=== PATIENT | male | born 1960 | race Caucasian/White ===

== ENCOUNTER 2019-05-08 16:31 | Inpatient (IN) | payer OTHER ==
[~2019-05-08] VITALS: Ht 182.9 cm; Wt 109.0 kg
[2019-05-08 17:03] LABS: BASOPHILS ABSOLUTE AUTO 0.08 K/mm3 (0.00-0.23); BASOPHILS PERCENT AUTO 0 % (0-2); EOSINOPHILS PERCENT AUTO 0 % (0-6); IMMATURE GRAN PERCENT AUTO 1 % (0-1); LYMPHOCYTES ABSOLUTE AUTO 0.95 K/mm3 (0.84-5.20); LYMPHOCYTES PERCENT AUTO 5 % (21-46); MONOCYTES ABSOLUTE AUTO 1.53 K/mm3 (0.16-1.47); MONOCYTES PERCENT AUTO 7 % (4-13); Mean Corpuscular HGB 29.2 pg (26.0-34.0); Mean Corpuscular HGB Conc 33.5 g/dL (31.5-36.5); Mean Corpuscular Volume 87 fL (80-100); Mean Platelet Volume 11.3 fL (9.1-12.4); NEUTROPHILS ABSOLUTE AUTO 18.56 K/mm3 (1.96-9.15); NEUTROPHILS PERCENT AUTO 87 % (41-73); Platelet Count 605 K/mm3 (150-400); RDW Coefficient Variation 12.4 % (11.7-14.2); RDW Standard Deviation 39.8 fL (35.1-46.3); White Blood Cell Count 21.32 K/mm3 (4.00-11.30)
[2019-05-08 17:04] LABS: Hematocrit 56.8 % (37.0-53.0)
[2019-05-08 17:14] LABS: Base Excess Venous 4.8 mmol/L; Bicarbonate Venous 27.3 mmol/L (24.0-30.0); PCO2 Venous 46.4 mmHg (38-42); PO2 Venous 60.3 mmHg (38-42); pH Blood Venous 7.41 (7.34-7.37)
[2019-05-08 17:27] LABS: Albumin/Globulin Ratio 0.6 (0.8-1.8); Bilirubin, Total 0.7 mg/dL (0.1-1.0); Bun/Creatinine Ratio 71.2 (12.0-20.0); Calcium, Blood 9.6 mg/dL (8.5-10.1); Creatinine, Blood 1.56 mg/dL (0.60-1.20); Globulin, Blood 5.2 g/dL (2.2-4.0); Potassium, Blood 3.2 mmol/L (3.5-5.5); Total Protein, Blood 8.2 g/dL (6.4-8.2)
[2019-05-08 17:48] LABS: Source, Urine Voided
[2019-05-08 17:51] LABS: Bilirubin, Urine Neg (Neg); Blood, Urine 2+ (Neg); Glucose Qualitative, Urine 4+ (Neg); Ketones, Urine Neg (Neg); Leukocyte Esterase, Urine Neg (Neg); Nitrite, Urine Neg (Neg); Protein, Urine Neg (Neg); Urobilinogen, Urine NORM (Normal)
[2019-05-08 17:53] LABS: Appearance, Urine Clear (Clear); Color, Urine Yellow (P-Yellow)
[2019-05-08 17:59] LABS: Amorphous Light (0-Heavy); Bacteria Few /hpf; Mucus Light (0-Heavy); Squamous Epithelial Cells Rare /hpf (Few); White Blood Cells, Urine Not Seen /hpf (0-5)
[2019-05-08 18:14] LABS: Influenza A Negative (NEGATIVE); Influenza B Negative (NEGATIVE)
[2019-05-08 19:15] LABS: Glucose, Blood 783 mg/dL (70-99)
[2019-05-08] MEDS ORDERED: DOC250 PO (19:38)
[2019-05-08] MEDS ORDERED: ACET325 PO (19:41)
[2019-05-08] MEDS ORDERED: GABA300 PO (19:42)
[2019-05-08] MEDS ORDERED: TAMS.4ER PO (19:42)
[2019-05-08] MEDS ORDERED: Viagra100 MG PO (19:42)
[2019-05-08] MEDS ORDERED: METO100ER PO (19:42)
[2019-05-08] MEDS ORDERED: OMEP20ER PO (19:42)
[2019-05-08] MEDS ORDERED: DULO30 PO (19:43)
[2019-05-08] MEDS ORDERED: NORVASC10 MG PO (19:43)
[2019-05-08] MEDS ORDERED: ATORVASTATIN CA40 M1 PO (19:43)
[2019-05-08] MEDS ORDERED: Aspirin EC81 MG PO (19:43)
[2019-05-08] MEDS ORDERED: HYDROCHLOROTH12.5 MG PO (19:44)
[2019-05-08] MEDS ORDERED: LISI20 PO (19:44)
[2019-05-08] MEDS ORDERED: Glucophage1000 MG PO (19:44)
[2019-05-08] MEDS ORDERED: JARDIANCE25 MG PO (19:45)
[2019-05-08 21:13] LABS: Bun/Creatinine Ratio 67.8 (12.0-20.0); Calcium, Blood 8.1 mg/dL (8.5-10.1); Creatinine, Blood 1.49 mg/dL (0.60-1.20); Potassium, Blood 3.5 mmol/L (3.5-5.5)
--- NOTE | 2019-05-08 23:00 | NUR ---
PT TO ICU 9 VIA KENYA WITH ED RN. PT ALERT AND ORIENTED TO SELF, PLACE, EVENT, AND FOLLOWING DIRECTIONS BUT ANSWERING SOME QUESTIONS INCORRECTLY/INAPPROPRIATELY, PT STS HE WAS BROUGHT IN TO THE HOSPITAL BY "ONE OF YOU"- REFERING TO THE STAFF IN THE ROOM, SOME REPETATIVE QUESTIONS ASKING STAFF MEMBERS "WHO ARE YOU?", PT STS HE HAS BEEN SICK FOR AWHILE AND TELLS THIS RN HE HAS NOT TAKEN HIS HOME MEDS FOR THE PAST 3-4 DAYS BUT REPORTS TO THE PROVIDER IT HAS BEEN NEARLY A MONTH SINCE HE HAS TAKEN ANY MEDICATIONS. O2 SATURATIONS MAINTAINED>90% ON RA, MONITOR SHOWS SINUS RHYTHM WITH HR 90'S-110, PT HYPOTENSIVE. REPORT FOR ED STS PT HAS RECEIVED 4L NS BOLUS, ORDER FROM NEO SPAULDING DENTAL TECHNOLOGIST FOR 2 ADDITIONAL NS BOLUS. PT STS HAS NOT HAD A BM FOR AT LEAST 7 DAYS. MOBLEY PRESENT AND DRAINING YELLOW URINE. L SIDE WEAKNESS PRESENT, HX OF CVA IN 2016 PER PT. FECES NOTED TO BOTTOM OF PTS FOOT, PT STS HE HAS MANY ANMIALS AT HOME AND HAS NOT BEEN ABLE TO CARE FOR THEM SINCE HE BECAME ILL, FOOT CLEANED UPON ARRIVAL TO ROOM.
--- NOTE | 2019-05-08 23:18 | NUR ---
SPOKE WITH NEO SPAULDING, UPDATED ON PTS STATUS, 6TH LITER BOLUS INFUSING, PT REMAINS HYPOTENSIVE. SEE NEW ORDERS.
[2019-05-08 23:35] LABS: Glucose, Blood 520 mg/dL (70-99)
[2019-05-08 23:42] LABS: Adenovirus Not Detected (NOT DETECT); Bordetella pertussis Not Detected (NOT DETECT); Chlamydophila pneumoniae Not Detected (NOT DETECT); Coronavirus 229E Not Detected (NOT DETECT); Coronavirus HKU1 Not Detected (NOT DETECT); Coronavirus NL63 Not Detected (NOT DETECT); Coronavirus OC43 Not Detected (NOT DETECT); Human Metapneumovirus Not Detected (NOT DETECT); Human Rhinovirus/Enterovirus Not Detected (NOT DETECT); Influenza A Not Detected (NOT DETECT); Influenza A/2009-H1 Not Detected (NOT DETECT); Influenza A/H1 Not Detected (NOT DETECT); Influenza A/H3 Not Detected (NOT DETECT); Influenza B Not Detected (NOT DETECT); Mycoplasma pneumoniae Not Detected (NOT DETECT); Parainfluenza Virus 1 Not Detected (NOT DETECT); Parainfluenza Virus 2 Not Detected (NOT DETECT); Parainfluenza Virus 3 Not Detected (NOT DETECT); Parainfluenza Virus 4 Not Detected (NOT DETECT); Respiratory Syncytial Virus Detected (NOT DETECT)
--- NOTE | 2019-05-09 01:30 | NUR ---
DR VERA TO ROOM, BEDSIDE ULTRASOUND, SEE NEW ORDERS.
[2019-05-09 03:24] LABS: Hematocrit 40.9 % (37.0-53.0); Hemoglobin 13.7 g/dL (13.5-17.5); Mean Corpuscular HGB 29.7 pg (26.0-34.0); Mean Corpuscular HGB Conc 33.5 g/dL (31.5-36.5); Mean Corpuscular Volume 89 fL (80-100); Mean Platelet Volume 10.7 fL (9.1-12.4); Platelet Count 397 K/mm3 (150-400); RDW Coefficient Variation 12.5 % (11.7-14.2); RDW Standard Deviation 40.5 fL (35.1-46.3); Red Blood Cell Count 4.62 M/mm3 (4.30-5.90); White Blood Cell Count 32.37 K/mm3 (4.00-11.30)
[2019-05-09 03:38] LABS: Bun/Creatinine Ratio 56.9 (12.0-20.0); Calcium, Blood 7.1 mg/dL (8.5-10.1); Creatinine, Blood 1.44 mg/dL (0.60-1.20); Potassium, Blood 3.7 mmol/L (3.5-5.5)
--- NOTE | 2019-05-09 07:19 | NUR ---
SHIFT SUMMARY PT RESTED THROUGH SHIFT, REMAINS AROUSABLE TO VERBAL STIMULI AND ORIENTED TO SELF, EVENT, PLACE AND FOLLOWING DIRECTIONS. PT DOES SEEM CONFUSED AT TIMES, POSSIBLE AUDITORY HALLUCINATIONS- STS HE WAS HEARING DOGS PARKING, NOT AUDIBLE BY THIS RN. PT WITH REPETATIVE QUESTIONS AND APPEARS FRUSTRATED WITH STAFF AT TIMES. MONITOR SHOWS SINUS RHYTHM WITH HR 90-110, BP MORE STABLE WITH SBP 90'S-110. NO BM THIS SHIFT, PT TOLERATING PO INTAKE OF WATER AND ICE CHIPS. MOBLEY IN PLACE AND DRAINING DARK YELLOW URINE. REPORT TO JAMIE LAGOS.
--- NOTE | 2019-05-09 10:11 | NUR ---
BEDSIDE REPORT TAKEN AT 0700. PT SLEEPING AROUSES TO VOICE. GRAM POS COCCI IN CHAINS REPORTED TO DR VERA AT 0755; WELL COMPLETE UPDATE. BP HYPOTENSIVE W MAP>65. NS INFUSING AT 100CC/HR. AZITHROMYCIN TO BE GIVEN. PT WOKE UP AT 0830 COVERED WITH STOOL. STOOL ON HANDS, BODY, AND LINEN. PT SOMEWHAT DISORIENTED AT FIRST AND THEN CLEARED VERY WELL T/O CLEANING. PT ORIENTED TO SELF, YEAR, AND HOSPITAL. PT VERY APOLOGETIC; PT COMFORTED. PT IN 8/10 PAIN WITH BED BATH. GENERALIZED PAIN/ACHE T/O. SKIN TAUNT, JOINTS RED. SCROTUM VERY EXORIATED W BLEEDING; BARRIER CREAM APPLIED. EXCORIATED AT COCCYX CREASE; BARRIER CREAM APLLIED. VAROIUS OLD SCRATCHES AND SORES COVERING PT. PT'S TEETH SEVERLY DECAYED AND LOOSE. ORAL CARE COMPLETED; NO THRUSH NOTED. FENT 25MCG GIVEN W GOOD EFFECT. LABS TO BE REPEATED AT 1100.
[2019-05-09 11:37] LABS: Anion Gap 5 mmol/L (6-16); Blood Urea Nitrogen 62 mg/dL (8-24); Bun/Creatinine Ratio 48.8 (12.0-20.0); CO2, Blood 24 mmol/L (21-32); Calcium, Blood 7.3 mg/dL (8.5-10.1); Chloride, Blood 118 mmol/L (98-108); Creatinine, Blood 1.27 mg/dL (0.60-1.20); Glomerular Filtration Rate >60 (60-); Glucose, Blood 261 mg/dL (70-99); Magnesium, Blood 2.6 mg/dL (1.6-2.4); Potassium, Blood 3.8 mmol/L (3.5-5.5); Sodium, Blood 147 mmol/L (136-145)
--- NOTE | 2019-05-09 12:32 | NUR ---
PT LETHARGIC, AWAKENS TO VOICE AND IS SOEMWHAT CONFUSED; ABLE TO RE-ORIENT PT. PT MOANS WHEN MOVED. PT INCONTINENT OF STOOL X2, PASTY. TEMP 99.0, BUT PT FEELS WARMER THAN THIS, SKIN IS HOT AND FLUSHED. WILL MONITOR CLOSELY. U/O DARK DANIELA. BP STABLE. O2 PLACED AT 2L SATS DROP OCC TO 88% WHILE SLEEPING. 1100 AM LABS STABLE.
--- NOTE | 2019-05-09 18:47 | NUR ---
PT LETHARGIC AND SLEPT THE ENTIRE SHIFT ONLY AWAKENING FOR TURNS. TURNS VERY PAINFUL FOR PT, CRIES OUT (CHILD LIKE WHINES AND COMPLAINTS); PT COMFORTED. PT WARM AND FLUSH T/O SHIFT; TMAX 99.1. PT INCONTINENT OF STOOL X4; STOOL PASTY/LOOSE/DK BROWN. EXCORIATED SCROTUM AND COCCYX CREASE MUCH IMPROVED AFTER BARRIER CREAM APPLIED. BS STABLE. NS AT 100CC/HR. BP STABLILIZED AND IS SLOWLY TRENDING UPWARD, HEART RATE REMAINS SR TO SINUS TACH 90-110. URINE DARK DANIELA (1500CC TOTAL). PT TURNED Q2HRS. ORAL CARE Q 2 WELL; SEVERE TOOTH DECAY,MISSING TEETH, AND LOOSE TEETH T/O. FENT ONLY GIVEN ONCE D/T SOMULENCE. POWERGLIDE PLACED TO ROSIO. UNABLE TO TAKE ACCURATE BP ON LEFT ARM D/T CVA. DR MUNGUIA UPDATED ON PT'S CONDITION, DR VERA UPDATED T/O THE SHIFT SHE WAS IN THE UNIT. 02 PLACED AT 2L PT WOULD OCC DESATURATE WHILE SLEEPING TO 88%. SATS 96%+ ON 2L. COUGH NON-PRODUCTIVE HARSH AND LOOSE SOUNDING.
--- NOTE | 2019-05-09 19:30 | NUR ---
ASSUMED CARE NOTE; ASSUMED CARE OF PT AT 1900, RECEVIED REPORT FROM DEMOND AYALA. PT IS LETHARGIC, RESPONDS TO VERBAL AND PAINFUL STIMULI. PT IS ON 2L OF O2 VIA NC WITH SPO2 REMAINING ABOVE 90%. ORAL MUCOSA IS DRY, WILL PROVIDE ORAL CARE Q2H. PT IN AFIB WITH HR @ 105. PT INCONTINENT OF BOWELS, REDDEND SCROTUM NOTED. MOBLEY PATENT AND DRAINING YELLOW DANIELA URINE. WILL CONTINUE TO MONITOR PT T/O SHIFT.
--- NOTE | 2019-05-09 23:40 | NUR ---
UPDATE: RECTAL TUBE PLACED, TO PREVENT FURTHER SKIN BREAKDOWN. PT TOLERATED INSERTION WELL.
--- NOTE | 2019-05-10 00:58 | NUR ---
SPOKE TO REGARDING ELEVATING BP, ORDERS GIVEN TO MONITOR AND CALL IF BP CONTINUES TO RISE.
--- NOTE | 2019-05-10 04:03 | NUR ---
UPDATE: CALLED HOSPITALIST REGARDING ELEVATED BP. ORDERS GIVEN FOR PRN MEDS, SEE EMAR. WILL CONTINUE TO MONITOR PT.
[2019-05-10 04:46] LABS: BASOPHILS ABSOLUTE AUTO 0.07 K/mm3 (0.00-0.23); BASOPHILS PERCENT AUTO 0 % (0-2); EOSINOPHILS ABSOLUTE AUTO 0.01 K/mm3 (0.00-0.68); EOSINOPHILS PERCENT AUTO 0 % (0-6); Hematocrit 40.3 % (37.0-53.0); Hemoglobin 13.5 g/dL (13.5-17.5); IMMATURE GRAN ABSOLUTE AUTO 0.37 K/mm3 (0.00-0.10); IMMATURE GRAN PERCENT AUTO 1 % (0-1); LYMPHOCYTES ABSOLUTE AUTO 2.34 K/mm3 (0.84-5.20); LYMPHOCYTES PERCENT AUTO 8 % (21-46); MONOCYTES ABSOLUTE AUTO 1.23 K/mm3 (0.16-1.47); MONOCYTES PERCENT AUTO 4 % (4-13); Mean Corpuscular HGB 29.9 pg (26.0-34.0); Mean Corpuscular HGB Conc 33.5 g/dL (31.5-36.5); Mean Corpuscular Volume 89 fL (80-100); Mean Platelet Volume 10.7 fL (9.1-12.4); NEUTROPHILS ABSOLUTE AUTO 24.06 K/mm3 (1.96-9.15); NEUTROPHILS PERCENT AUTO 86 % (41-73); Platelet Count 360 K/mm3 (150-400); RDW Coefficient Variation 13.1 % (11.7-14.2); RDW Standard Deviation 43.1 fL (35.1-46.3); Red Blood Cell Count 4.52 M/mm3 (4.30-5.90); White Blood Cell Count 28.08 K/mm3 (4.00-11.30)
[2019-05-10 05:06] LABS: Magnesium, Blood 2.7 mg/dL (1.6-2.4)
[2019-05-10 05:09] LABS: Alanine Aminotransfer (ALT/SGP 25 U/L (12-78); Albumin, Blood 1.7 g/dL (3.4-5.0); Albumin/Globulin Ratio 0.5 (0.8-1.8); Alk Phos 56 U/L (50-136); Anion Gap 8 mmol/L (6-16); Aspartate Aminotrans (AST/SGOT 26 U/L (12-37); Bilirubin, Total 0.4 mg/dL (0.1-1.0); Blood Urea Nitrogen 42 mg/dL (8-24); Bun/Creatinine Ratio 34.7 (12.0-20.0); CO2, Blood 22 mmol/L (21-32); Calcium, Blood 7.9 mg/dL (8.5-10.1); Chloride, Blood 127 mmol/L (98-108); Creatinine, Blood 1.21 mg/dL (0.60-1.20); Globulin, Blood 3.6 g/dL (2.2-4.0); Glomerular Filtration Rate >60 (60-); Glucose, Blood 178 mg/dL (70-99); Phosphorus, Blood 1.5 mg/dL (2.5-4.9); Potassium, Blood 3.8 mmol/L (3.5-5.5); Sodium, Blood 157 mmol/L (136-145); Total Protein, Blood 5.3 g/dL (6.4-8.2)
--- NOTE | 2019-05-10 06:09 | NUR ---
SHIFT SUMMARY: PT REMAINS LETHARGIC, RESPONDS TO PAIN AND VERBAL STIMULI. WHEN REPOSITIONED IN BED, PT MOANS AND STATES" I DO NOT WANT TO ". PT IS ALERT TO SELF AND TIME. HOWEVER IS UNABLE TO RECALL RECENT EVENTS. PT'S STORIES ARE INCONSISTANT, AND IS A POOR HISTORIAN. REMAINS ON 2L OF O2 VIA NC, WITH SPO2 @ 95%. PT HAS BEEN ON SINUS TACH WITH HR IN THE 110'S. PT HAS BEEN HYPERTENSIVE T/O SHIFT, 10MG OF HYDRALAZINE IV WAS GIVEN, SBP LOWERD FROM 190 TO 130. RECTAL TUBE IN PLACE DRAINING BROWN LOOSE STOOL. MOBLEY DRAINING DANIELA COLOR URINE. TKO TO POWERGLIDE. BED AT LOWEST LEVEL. WILL CONTINUE TO MONITOR PT UNTIL REPORT IS GIVEN TO ONCOMING SHIFT.
--- NOTE | 2019-05-10 08:00 | NUR ---
PROVIDER COMMUNICATION DR. MUNGUIA TO BEDSIDE FOR ASSESSMENT. UPDATED ON EVENTS FROM NIGHT. DISCUSSED ELEVATED SODIUM LEVEL. NO NEW ORDERS AT THIS TIME.
--- NOTE | 2019-05-10 11:00 | NUR ---
CARE ASSUMED REPORT RECEIVED, CARE ASSUMED FROM DEMOND GREEN AT 0700. PT ASLEEP, AROUSES EASILY FOR ASSESSMENT. ORIENTED TO SELF, ABLE TO EXPRESS NEEDS. PT CONTINUES TO BE CONFUSED REGARDING LOCATION AND EVENT. PT REQUESTING WATER, ORAL CARE AND SWABS PROVIDED. ATTEMPTS MADE TO EDUCATE PT REGARDING PLAN OF CARE CAUSE FRUSTRATION FROM PATIENT. PT'S ROOM MATE AT BEDSIDE AND VERBALIZES UNDERSTANDING AND AGREEMENT WITH PLAN OF CARE. VITALS STABLE. SEE FLOWSHEET, ASSESSMENTS.
--- NOTE | 2019-05-10 11:51 | NUR ---
THORACENTESIS THORACENTESIS COMPLETE. APPROX 1 L FLUID TAKEN OFF. NOTIFIED BY CLEMENCIA IN IMAGING THAT PT HAS SMALL PNEUMOTHORAX POST PROCEDURE. UPDATE GIVEN TO DR. VERA. NO NEW ORDERS AT THIS TIME. VITALS STABLE. WILL CONTINUE TO CLOSELY MONITOR.
--- NOTE | 2019-05-10 12:12 | NUR ---
PROVIDER COMMUNICATION DR. VERA TO BEDSIDE FOR ASSESSMENT. PLAN TO COMPLETE BEDSIDE SWALLOW EVALUATION AND THEN LET PT DRINK WATER AND RECHECK SODIUM LEVEL THIS AFTERNOON. SEE DR. VERA'S PROGRESS NOTE AND ORDERS.
--- NOTE | 2019-05-10 19:06 | NUR ---
SUMMARY PT DID WELL ON BEDSIDE SWALLOW EVAL, AND SINCE THEN HAS BEEN DRINKING WATER AND TOLERATING WELL. REPEAT SODIUM THIS AFTERNOON CONTINUES TO BE ELEVATED. CONTNIUE WITH CURRENT PLAN OF ENCOURAGING FLUIDS. VITALS STABLE. PT CHANGED TO PCU STATUS THIS AFTERNOON BY DR. VERA. PT HAS CONTINUED TO HAVE LARGE AMOUNT OF LIQUID STOOL, RECTAL TUBE IN PLACE. GOOD OUTPUT FROM MOBLEY. PT'S ROOM MATE HAS BEEN IN AND OUT THROUGHOUT THE DAY, ENCOURAGING TO PATIENT AND SUPPORTIVE OF PLAN OF CARE. PT DOES REPORT HAVING SOME AUDITORY HALLUCINATIONS, SUCH HEARING DOGS BARK OR CHILDREN TALKING. HE ALSO APPEARS TO HAVE FLIGHT OF IDEAS. PT'S ROOM MATE REPORTS THIS HAS BEEN GOING ON FOR AWHILE NOW AND SHE [facility] TO HIM AFTER HE DISCHARGES FROM HERE. PT PROGRESSIVELY MORE INVOLVED WITH TURNS AND ADL'S DAY HAS GONE BY. GOOD APPETITE TONIGHT FOR DINNER.
--- NOTE | 2019-05-10 19:34 | NUR ---
REPORT TO DEMOND SCHUMACHER TO ASSUME CARE
[2019-05-10 22:33] LABS: Phosphorus, Blood 1.5 mg/dL (2.5-4.9); Potassium, Blood 3.4 mmol/L (3.5-5.5)
--- NOTE | 2019-05-10 22:53 | NUR ---
ASSUMED CARE OF PT AT 1900, BEDSIDE REPORT GIVEN WITH PT'S PERMISSION. PT DID NOT PARTICIPATE. PT HAD NO LINES ATTACHED, BUT HAD MOBLEY AND RECTAL TUBE. BOTH PATENT AND DRAINING. PT REFUSED REPOSITIONING, BUT MOVED SELF AND PULLED PILLOW TO SIDE OF HEAD. PT AT 45 DEGREES PER REQUEST FOR COMFORT. REPOSITIONED PT'S OXYGEN. CLARIFIED WITH HOSPITALIST JASSON PT'S CURRENT POTASSIUM LEVEL AND RECEIVED ORDER TO D/C POTASSIUM COVERAGE.
[2019-05-11 05:47] LABS: Magnesium, Blood 2.3 mg/dL (1.6-2.4)
[2019-05-11 05:48] LABS: Alanine Aminotransfer (ALT/SGP 25 U/L (12-78); Albumin, Blood 1.5 g/dL (3.4-5.0); Albumin/Globulin Ratio 0.5 (0.8-1.8); Alk Phos 58 U/L (50-136); Anion Gap 8 mmol/L (6-16); Aspartate Aminotrans (AST/SGOT 27 U/L (12-37); Bilirubin, Total 0.3 mg/dL (0.1-1.0); Blood Urea Nitrogen 35 mg/dL (8-24); Bun/Creatinine Ratio 29.2 (12.0-20.0); CO2, Blood 22 mmol/L (21-32); Calcium, Blood 7.8 mg/dL (8.5-10.1); Chloride, Blood 124 mmol/L (98-108); Globulin, Blood 3.3 g/dL (2.2-4.0); Glomerular Filtration Rate >60 (60-); Glucose, Blood 175 mg/dL (70-99); Phosphorus, Blood 2.1 mg/dL (2.5-4.9); Potassium, Blood 3.4 mmol/L (3.5-5.5); Sodium, Blood 154 mmol/L (136-145); Total Protein, Blood 4.8 g/dL (6.4-8.2)
--- NOTE | 2019-05-11 06:39 | NUR ---
PT SLEPT MOST OF THE NIGHT. PT DRINKING WATER AND ASKING FOR MORE. REFILLS GIVEN. PT MIDLINE NO LONGER GIVING BLOOD SAMPLES, LAB DRAWS ATTEMPTED, NOW ATTEMPTING CAPILLARY DRAW. PT HAD LARGE LEAK FROM RECTAL TUBE, PARTIAL BED BATH AND FULL LINEN CHANGE DONE. PT MOVING SELF IN BED WELL, WITH ASSISTANCE. PT TOLERATING ROOM AIR AT 96% O2 SAT.
[2019-05-11 06:55] LABS: BASOPHILS ABSOLUTE AUTO 0.06 K/mm3 (0.00-0.23); BASOPHILS PERCENT AUTO 0 % (0-2); EOSINOPHILS ABSOLUTE AUTO 0.05 K/mm3 (0.00-0.68); EOSINOPHILS PERCENT AUTO 0 % (0-6); Hemoglobin 12.6 g/dL (13.5-17.5); IMMATURE GRAN ABSOLUTE AUTO 0.47 K/mm3 (0.00-0.10); IMMATURE GRAN PERCENT AUTO 2 % (0-1); LYMPHOCYTES ABSOLUTE AUTO 1.75 K/mm3 (0.84-5.20); LYMPHOCYTES PERCENT AUTO 7 % (21-46); MONOCYTES ABSOLUTE AUTO 1.05 K/mm3 (0.16-1.47); MONOCYTES PERCENT AUTO 4 % (4-13); Mean Corpuscular HGB 29.6 pg (26.0-34.0); Mean Corpuscular HGB Conc 33.2 g/dL (31.5-36.5); Mean Corpuscular Volume 89 fL (80-100); NEUTROPHILS ABSOLUTE AUTO 20.57 K/mm3 (1.96-9.15); NEUTROPHILS PERCENT AUTO 86 % (41-73); RDW Coefficient Variation 13.5 % (11.7-14.2); RDW Standard Deviation 44.4 fL (35.1-46.3); Red Blood Cell Count 4.26 M/mm3 (4.30-5.90); White Blood Cell Count 23.95 K/mm3 (4.00-11.30)
[2019-05-11 07:19] LABS: Mean Platelet Volume 11.2 fL (9.1-12.4); Platelet Count 256 K/mm3 (150-400)
--- NOTE | 2019-05-11 12:12 | NUR ---
REASSESSMENT: PT HAS BEEN RESTING IN BED THROUGHOUT THE MORNING. HE WORKED WITH PHYSICAL THERAPY AND DANGLED AT THE EOB. HE REMAINS ALERT AND ORIENTED. DENIES ANY HALLUCINATIONS THIS MORNING BUT SAYS HE HAD SOME LAST NIGHT. LUNGS CLEAR, DIM IN THE BASES. AFIB WITH RATE IN THE 90S. BP STABLE. TOLERATING FULL LIQUID DIET. RECTAL TUBE PUTTING OUT DARK, MAROON/BLACK LIQUID. SPOKE WITH DR. MUNGUIA AND RECEIVED ORDERS FOR C.DIFF AND HEMOCCULT TESTING. SAMPLE SENT TO LAB. MOBLYE REMAINS IN PLACE PT'S SKIN IN HIS GROIN AND HIS SCROTUM IS VERY RAW. NO OTHER REQUESTS FROM PT AT THIS TIME. CONTINUING TO MONITOR.
[2019-05-11 13:22] LABS: Campylobacter Sp Not Detected (NOT DETECT); Cryptosporidium Not Detected (NOT DETECT); Cyclospora Cayetanensis Not Detected (NOT DETECT); E. Coli O157 Not Detected (NOT DETECT); Entamoeba Histolytica Not Detected (NOT DETECT); Enteroaggregative E. coli-EAEC Not Detected (NOT DETECT); Enteropathogenic E. coli-EPEC Detected (NOT DETECT); Enterotoxigenic E. coli-ETEC Not Detected (NOT DETECT); Plesiomonas Shigelloides Not Detected (NOT DETECT); Salmonella Sp Not Detected (NOT DETECT); Shiga Toxin-prod E. coli-STEC Not Detected (NOT DETECT); Shigella/Enteroin E. coli-EIEC Not Detected (NOT DETECT); Vibrio Cholerae Not Detected (NOT DETECT); Vibrio Sp Not Detected (NOT DETECT); Yersinia Enterocolitica Not Detected (NOT DETECT)
[2019-05-11 13:23] LABS: Adenovirus F 40/41 Not Detected (NOT DETECT); Astrovirus Not Detected (NOT DETECT); Giardia Lamblia Not Detected (NOT DETECT); Norovirus GI/GII Not Detected (NOT DETECT); Rotavirus A Not Detected (NOT DETECT); Sapovirus Not Detected (NOT DETECT)
[2019-05-11 14:43] LABS: Stool Occult Blood Guaiac 1 Pos (Neg)
[2019-05-12 03:31] LABS: BASOPHILS ABSOLUTE AUTO 0.02 K/mm3 (0.00-0.23); BASOPHILS PERCENT AUTO 0 % (0-2); EOSINOPHILS ABSOLUTE AUTO 0.22 K/mm3 (0.00-0.68); EOSINOPHILS PERCENT AUTO 2 % (0-6); Hematocrit 31.4 % (37.0-53.0); Hemoglobin 10.5 g/dL (13.5-17.5); IMMATURE GRAN ABSOLUTE AUTO 0.24 K/mm3 (0.00-0.10); IMMATURE GRAN PERCENT AUTO 2 % (0-1); LYMPHOCYTES ABSOLUTE AUTO 2.13 K/mm3 (0.84-5.20); LYMPHOCYTES PERCENT AUTO 15 % (21-46); MONOCYTES ABSOLUTE AUTO 0.86 K/mm3 (0.16-1.47); MONOCYTES PERCENT AUTO 6 % (4-13); Mean Corpuscular HGB Conc 33.4 g/dL (31.5-36.5); Mean Corpuscular Volume 90 fL (80-100); Mean Platelet Volume 10.7 fL (9.1-12.4); NEUTROPHILS ABSOLUTE AUTO 10.98 K/mm3 (1.96-9.15); NEUTROPHILS PERCENT AUTO 76 % (41-73); Platelet Count 312 K/mm3 (150-400); RDW Coefficient Variation 13.3 % (11.7-14.2); RDW Standard Deviation 44.3 fL (35.1-46.3); White Blood Cell Count 14.45 K/mm3 (4.00-11.30)
[2019-05-12 03:48] LABS: Albumin, Blood 1.4 g/dL (3.4-5.0); Anion Gap 5 mmol/L (6-16); Blood Urea Nitrogen 22 mg/dL (8-24); Bun/Creatinine Ratio 22.7 (12.0-20.0); CO2, Blood 23 mmol/L (21-32); Calcium, Blood 7.5 mg/dL (8.5-10.1); Chloride, Blood 118 mmol/L (98-108); Creatinine, Blood 0.97 mg/dL (0.60-1.20); Glomerular Filtration Rate >60 (60-); Glucose, Blood 153 mg/dL (70-99); Phosphorus, Blood 2.4 mg/dL (2.5-4.9); Potassium, Blood 3.1 mmol/L (3.5-5.5); Sodium, Blood 146 mmol/L (136-145)
--- NOTE | 2019-05-12 04:43 | NUR ---
SHIFT SUMMARY PATIENT SLEPT WELL THROUGH MOST OF NIGHT. OVERALL PATIENT STATES HE FEELS SLIGHTLY BETTER, STILL NOT GREAT CONSIDERING ALL TUBES/WIRES IN PLACE. STILL NO SPUTUM PRODUCTION, HOWEVER COUGH DOES SOUND MORE PRODUCTIVE. NO C/O PAIN. ASSESSMENT IS CHARTED. VSS. WILL CONTINUE TO MONMITOR.
--- NOTE | 2019-05-12 07:00 | NUR ---
REPORT FROM NOC RN. ASSUMED PT CARE. PT APPEARS TO BE RESTING.
--- NOTE | 2019-05-12 07:30 | NUR ---
PT MEDICATED WITH INSULIN PER EMAR. ASSESSMENT CHARTED. PT DENIES PAIN. 2ND BAG OF POTASSIUM STARTED. IVF INFUSING WELL. PT HAS RECTAL TUBE DRAINGING BROWN LIQUID, MOBLEY DRAINING DANIELA COLORED URINE. PT WEIGHT THIS AM WAS 105.5KG. PT STATES HE SLEPT WELL, VSS.
--- NOTE | 2019-05-12 08:15 | NUR ---
STAFF BROUGHT PT BREAKFAST TRAY.
--- NOTE | 2019-05-12 08:51 | NUR ---
PT MEDICATED WITH SCHEDULED MEDS. DR MUNGUIA TO ROOM FOR RE-EVAL. ORDERS FOR EYE DROPS AND REGULAR DIET TO BE PLACED.
--- NOTE | 2019-05-12 10:52 | NUR ---
COMPLETE BED BATH COMPLETE. MOBLEY CARE, RECTAL TUBE CARE COMPLETE. LINENS CHANGED. HEEL SORTER LEADS CHANGED. PT PROVIDED WITH ICE CREAM PER REQUEST. CALL LIGHT REMAINS IN REACH. PT DENIES PAIN/SOB. WILL CONT TO MONITOR.
--- NOTE | 2019-05-12 11:06 | NUR ---
THERAPY TO ROOM.
--- NOTE | 2019-05-12 11:34 | NUR ---
Initial spiritual care note: Mr. Oneal was pleasant and welcoming of companionship/conversation. He has few friends, and prefers solitude to being around people. He is a 22 yr. dtr who is estranged. He expressed some remorse about past relationships and had some questions he had been wrestling with about his relationship with God. He responded well to emotional affirmation, spiritual pre parole counseling aide, and theraputic listening. He is concerned about this illness and could perhaps benefit from an easy to understand clinical explaination. Regardless, he appeared to enjoy pre parole counseling aide and conversation. I will remain available.
--- NOTE | 2019-05-12 11:43 | NUR ---
CBG CHECKED. 244. MEDICATED PER EMAR. PT BACK IN BED AFTER WORKING WITH THERAPY.
--- NOTE | 2019-05-12 12:20 | NUR ---
VSS. PT MEDICATED PER EMAR. LUNCH TRAY PROVIDED. PT STATES "NOT REAL HUNGRY THIS TIME" DENIES PAIN, SOB. CALL LIGHT IN REACH. MOBLEY EMPTIED. ATTEMPT TO CHANGE BAG FOR RECTAL TUBE, NO BAGS INSTOCK.
--- NOTE | 2019-05-12 13:30 | NUR ---
VISITORS TO ROOM. PT WAKES WITH VISITORS TALKING. DENIES NEEDS.
--- NOTE | 2019-05-12 15:38 | NUR ---
DISCUSSED BP DIFFERENCE WITH DR MUNGUIA. PLAN TO GET VASCULAR EVAL, POSSIBLY AN ECHO.
--- NOTE | 2019-05-12 16:13 | NUR ---
[facility] CENTER STAFF TO ROOM FOR ECHO.
--- NOTE | 2019-05-12 17:02 | NUR ---
ECHOCARDIOGRAM COMPLETE
--- NOTE | 2019-05-12 17:27 | NUR ---
RECTAL TUBE PULLED TO NO OUTPUT DURING THIS SHIFT, SKIN INTACT. PT KRISTINA WELL.
--- NOTE | 2019-05-12 17:35 | NUR ---
DINNER TRAY PROVIDED TO PT.
--- NOTE | 2019-05-12 17:44 | NUR ---
DR MUNGUIA UPDATED. VO TO TRANSFER IN HOUSE TO [facility]. CHARGE AWARE.
[2019-05-13 03:26] LABS: Hematocrit 31.8 % (37.0-53.0); Hemoglobin 10.4 g/dL (13.5-17.5); Mean Corpuscular HGB 29.2 pg (26.0-34.0); Mean Corpuscular HGB Conc 32.7 g/dL (31.5-36.5); Mean Corpuscular Volume 89 fL (80-100); Mean Platelet Volume 10.4 fL (9.1-12.4); Platelet Count 327 K/mm3 (150-400); RDW Coefficient Variation 12.9 % (11.7-14.2); Red Blood Cell Count 3.56 M/mm3 (4.30-5.90); White Blood Cell Count 11.88 K/mm3 (4.00-11.30)
[2019-05-13 03:44] LABS: Albumin, Blood 1.3 g/dL (3.4-5.0); Anion Gap 6 mmol/L (6-16); Blood Urea Nitrogen 14 mg/dL (8-24); Bun/Creatinine Ratio 16.3 (12.0-20.0); CO2, Blood 23 mmol/L (21-32); Calcium, Blood 7.3 mg/dL (8.5-10.1); Chloride, Blood 115 mmol/L (98-108); Creatinine, Blood 0.86 mg/dL (0.60-1.20); Glomerular Filtration Rate >60 (60-); Glucose, Blood 114 mg/dL (70-99); Phosphorus, Blood 2.3 mg/dL (2.5-4.9); Potassium, Blood 3.4 mmol/L (3.5-5.5); Sodium, Blood 144 mmol/L (136-145)
--- NOTE | 2019-05-13 06:10 | NUR ---
SHIFT SUMMARY PATIENT SLEPT WELL THROUGH THE NIGHT. RESPIRATORY EFFORT REMAINS EXCELLENT, NO SPUTUM PRODUCED. LUNG SOUNDS REMAIN CLEAR, SLIGHTLY DIMINISHED IN BASES. NO C/O PAIN. ASSESSMENT IS CHARTED. VSS. AWAITING CALL FROM DR. BECERRA FOR ELECTROLYTE REPLACEMENT. WILL CONTINUE TO MONITOR.
--- NOTE | 2019-05-13 18:37 | NUR ---
SHIFT SUMMARY PT IS ALERT AND ORIENTED, FOLLOWS COMMANDS, NOTED TO MINIMAL GROSS MOVEMENT TO LEFT UPPER AND LEFT LOWER EXTREMETY. PT REPORTS THIS IS BASELINE FOR HIM FROM HIS PREVIOUS CVA. PT TOLERATED MOVING TO THE CHAIR AND SITTING UP FOR A COUPLE OF HOURS, UTILIZING THE CEILING LIFT. MOBLEY IS DRAINING CLEAR, YELLOW URINE OF QUANTITY SUFFICIANT. VITALS HAVE REMAINED STABLE, THE MONITOR HAS SHOWN PT TO BE IN A SINUS RHYTHM.
[2019-05-14 03:54] LABS: Hematocrit 32.3 % (37.0-53.0); Hemoglobin 10.6 g/dL (13.5-17.5); Mean Corpuscular HGB 28.7 pg (26.0-34.0); Mean Corpuscular HGB Conc 32.8 g/dL (31.5-36.5); Mean Corpuscular Volume 88 fL (80-100); Mean Platelet Volume 10.2 fL (9.1-12.4); Platelet Count 346 K/mm3 (150-400); RDW Coefficient Variation 12.8 % (11.7-14.2); RDW Standard Deviation 40.8 fL (35.1-46.3); Red Blood Cell Count 3.69 M/mm3 (4.30-5.90); White Blood Cell Count 10.91 K/mm3 (4.00-11.30)
[2019-05-14 04:14] LABS: Albumin, Blood 1.5 g/dL (3.4-5.0); Anion Gap 4 mmol/L (6-16); Blood Urea Nitrogen 11 mg/dL (8-24); CO2, Blood 26 mmol/L (21-32); Calcium, Blood 7.5 mg/dL (8.5-10.1); Chloride, Blood 115 mmol/L (98-108); Creatinine, Blood 0.85 mg/dL (0.60-1.20); Glomerular Filtration Rate >60 (60-); Glucose, Blood 120 mg/dL (70-99); Phosphorus, Blood 2.6 mg/dL (2.5-4.9); Potassium, Blood 3.6 mmol/L (3.5-5.5); Sodium, Blood 145 mmol/L (136-145)
--- NOTE | 2019-05-14 06:06 | NUR ---
SHIFT SUMMARY PT MEDICAL W/ TELE STATUS. A&O X4. VSS. MONITOR SHOWS SR, HR 80's-90's. SPO2 > 92% ON RA. PT W/ L-SIDED WEAKNESS FROM PRIOR CVA THAT PT REPORTS OCCURING NEARLY 4 YRS AGO. NO EVENTS OVER NIGHT. PT DENIES PAIN/DISCOMFORT. MOBLEY CATH PATENT AND DRAINING. 1/2 NS GTT INFUSING PER ORDERS. WILL CONTINUE TO MONITOR AND PROVIDE CARE UNTIL REPORT OFF TO DAY SHIFT RN.
--- NOTE | 2019-05-14 11:37 | NUR ---
PT AT BEDSIDE ASSISTING TO TO BEDSIDE CHAIR FOR D/C ASSESSMENT
[2019-05-14] MEDS ORDERED: EYE DROPS15 ML OP (15:01)
[2019-05-14] MEDS ORDERED: BASAGLAR K100 UNIT/1 (15:02)
[2019-05-14] MEDS ORDERED: INSR10I (15:06)
[2019-05-14] MEDS ORDERED: K-Phos Origina500 MG PO (15:07)
--- NOTE | 2019-05-14 17:09 | NUR ---
REPORT TO KRISTAN WELCH
--- NOTE | 2019-05-14 17:46 | NUR ---
PT OTD WITH [facility]. PT'S BELONGINGS SENT WITH HIM, PT EXPRESSED UNDERSTANDING PF DC TEACHING, DENIES FURTHER NEEDS.
== END 2019-05-14 17:40 | DRG 314 ==
LOC: ER 16:31 → ICUW 18:35
PROVIDERS: Emergency Medicine; Family Medicine; Internal Medicine; Internal Medicine Critical Care Medicine; Nurse Practitioner Acute Care; ADMIT Internal Medicine
DX: T80.211A Bloodstream infection due to central venous catheter, initial encounter (principal); A40.9 Streptococcal sepsis, unspecified; E11.01 Type 2 diabetes mellitus with hyperosmolarity with coma; R65.21 Severe sepsis with septic shock; N17.9 Acute kidney failure, unspecified; E87.0 Hyperosmolality and hypernatremia; I69.954 Hemiplegia and hemiparesis following unspecified cerebrovascular disease affecting left non-dominant side; K52.9 Noninfective gastroenteritis and colitis, unspecified; I10 Essential (primary) hypertension; E78.5 Hyperlipidemia, unspecified; E87.6 Hypokalemia; K59.00 Constipation, unspecified; B97.4 Respiratory syncytial virus as the cause of diseases classified elsewhere; E86.0 Dehydration; E66.9 Obesity, unspecified; Z68.28 Body mass index [BMI] 28.0-28.9, adult; Z79.82 Long term (current) use of aspirin; Z79.84 Long term (current) use of oral hypoglycemic drugs
CPT/HCPCS: 0097U; 0099U; 36415; 36416; 51702; 71045; 80048; 80053; 80069; 81001; 82010; 82270; 82533; 82803; 82947; 83605; 83690; 83735; 84100; 84132; 84145; 84295; 85025; 85027; 87040; 87184; 87804; 93005; 93010; 93306; 94667; 96361-59; 96365-59; 96366-59; 96375-59; 97110; 97162; 97530; 99285-25; A9270-GY; C1751; C9113; J0360; J0456; J0696; J1650; J1815; J2405; J3010; J3480; J7030; J7050; J7060

== ENCOUNTER 2020-04-14 17:37 | Inpatient (IN) | payer OTHER ==
[~2020-04-14] VITALS: Ht 172.7 cm; Wt 99.8 kg
[~2020-04-14 17:37] MED LIST: ACET325 PO; ATORVASTATIN CA40 M1 PO; Aspirin EC81 MG PO; BASAGLAR K100 UNIT/1 SC; DOC250 PO; DULO30 PO; EYE DROPS15 ML OP; GABA300 PO; Glucophage1000 MG PO; HYDROCHLOROTH12.5 MG PO; INSR10I; JARDIANCE25 MG PO; K-Phos Origina500 MG PO; LISI20 PO; METO100ER PO; NORVASC10 MG PO; OMEP20ER PO; TAMS.4ER PO; Viagra100 MG PO
[2020-04-14 18:42] LABS: BASOPHILS ABSOLUTE AUTO 0.04 K/mm3 (0.00-0.23); BASOPHILS PERCENT AUTO 0 % (0-2); EOSINOPHILS PERCENT AUTO 0 % (0-6); Hematocrit 56.4 % (37.0-53.0); Hemoglobin 17.8 g/dL (13.5-17.5); IMMATURE GRAN ABSOLUTE AUTO 0.11 K/mm3 (0.00-0.10); IMMATURE GRAN PERCENT AUTO 1 % (0-1); LYMPHOCYTES ABSOLUTE AUTO 2.29 K/mm3 (0.84-5.20); LYMPHOCYTES PERCENT AUTO 11 % (21-46); MONOCYTES ABSOLUTE AUTO 1.98 K/mm3 (0.16-1.47); MONOCYTES PERCENT AUTO 9 % (4-13); Mean Corpuscular HGB 25.1 pg (26.0-34.0); Mean Corpuscular HGB Conc 31.6 g/dL (31.5-36.5); Mean Corpuscular Volume 80 fL (80-100); Mean Platelet Volume 10.8 fL (9.1-12.4); NEUTROPHILS ABSOLUTE AUTO 17.36 K/mm3 (1.96-9.15); NEUTROPHILS PERCENT AUTO 80 % (41-73); Platelet Count 494 K/mm3 (150-400); RDW Coefficient Variation 16.9 % (11.7-14.2); RDW Standard Deviation 43.7 fL (35.1-46.3); Red Blood Cell Count 7.08 M/mm3 (4.30-5.90); White Blood Cell Count 21.78 K/mm3 (4.00-11.30)
[2020-04-14 19:02] LABS: Albumin, Blood 3.8 g/dL (3.4-5.0); Albumin/Globulin Ratio 0.8 (0.8-1.8); Bilirubin, Total 0.7 mg/dL (0.1-1.0); Bun/Creatinine Ratio 48.8 (12.0-20.0); Calcium, Blood 9.6 mg/dL (8.5-10.1); Creatinine, Blood 2.15 mg/dL (0.60-1.20); Globulin, Blood 4.8 g/dL (2.2-4.0); Potassium, Blood 3.2 mmol/L (3.5-5.5); Total Protein, Blood 8.6 g/dL (6.4-8.2)
[2020-04-14 19:32] LABS: Base Excess Venous 4.6 mmol/L; Bicarbonate Venous 26.7 mmol/L (24.0-30.0); PCO2 Venous 47.5 mmHg (38-42); PO2 Venous 36.8 mmHg (38-42)
[2020-04-14 21:53] LABS: Source, Urine Clean Catch
[2020-04-14 22:01] LABS: Appearance, Urine Clear (Clear); Bilirubin, Urine Neg (Neg); Blood, Urine Neg (Neg); Color, Urine Yellow (P-Yellow); Glucose Qualitative, Urine 4+ (Neg); Ketones, Urine 2+ (Neg); Leukocyte Esterase, Urine Neg (Neg); Nitrite, Urine Neg (Neg); Protein, Urine 2+ (Neg); Urobilinogen, Urine NORM (Normal)
[2020-04-14 22:07] LABS: Amorphous Light (0-Heavy); Bacteria Mod /hpf; Red Blood Cells, Urine 0-2 /hpf (0-2); Squamous Epithelial Cells Not Seen /hpf (Few); White Blood Cells, Urine 0-2 /hpf (0-5)
[2020-04-15] MEDS ORDERED: ASPIR 8181 M1 PO (01:04)
[2020-04-15] MEDS ORDERED: DOC250 PO (01:06)
--- NOTE | 2020-04-15 02:36 | NUR ---
PT ADMITTED FROM ER AT APPROX 0055 FOR SEVERE SEPSIS. PT A&O X4. HR TACHY IN THE 130'S, LOW GRADE TEMP OF 99.6. ALL OTHER VS WNL. PT C/O NAUSEA. NO EMESIS. REPORTS NOT BEING ABLE TO TAKE ORAL HOME MEDS D/T N/V SINCE FRIDAY. UNABLE TO COMPLETE MED REC PT CANNOT REMEMBER ALL OF THE MEDICATIONS HE TAKES. LUNGS CLEAR T/O. ACTIVE BT X4. SCRACHES AND SCABS SCATTERED TO BLE. PT REPORTS THE SCRATCHES ARE FROM HIS THREE CATS. PT HAS LEFT SIDED DEFICIT D/T HX OF CVA. PT APPEARS TO HAVE FULL ROM TO LEFT LEG. LIMITED ROM TO LEFT ARM. PT DENIES N/T THROUGHOUT.REPORTS USING A CANE AT BASELINE. PT REPORTS LIVING WITH A ROOMMATE WHO IS HELPFUL WITH HIS CARE.
[2020-04-15 04:03] LABS: BASOPHILS ABSOLUTE AUTO 0.03 K/mm3 (0.00-0.23); BASOPHILS PERCENT AUTO 0 % (0-2); EOSINOPHILS PERCENT AUTO 0 % (0-6); Hematocrit 48.5 % (37.0-53.0); Hemoglobin 14.9 g/dL (13.5-17.5); IMMATURE GRAN ABSOLUTE AUTO 0.06 K/mm3 (0.00-0.10); IMMATURE GRAN PERCENT AUTO 0 % (0-1); LYMPHOCYTES ABSOLUTE AUTO 1.46 K/mm3 (0.84-5.20); LYMPHOCYTES PERCENT AUTO 9 % (21-46); MONOCYTES ABSOLUTE AUTO 1.78 K/mm3 (0.16-1.47); MONOCYTES PERCENT AUTO 11 % (4-13); Mean Corpuscular HGB 25.1 pg (26.0-34.0); Mean Corpuscular HGB Conc 30.7 g/dL (31.5-36.5); Mean Corpuscular Volume 82 fL (80-100); Mean Platelet Volume 11.1 fL (9.1-12.4); NEUTROPHILS ABSOLUTE AUTO 13.25 K/mm3 (1.96-9.15); NEUTROPHILS PERCENT AUTO 80 % (41-73); Platelet Count 363 K/mm3 (150-400); RDW Coefficient Variation 15.6 % (11.7-14.2); RDW Standard Deviation 45.1 fL (35.1-46.3); Red Blood Cell Count 5.94 M/mm3 (4.30-5.90); White Blood Cell Count 16.58 K/mm3 (4.00-11.30)
[2020-04-15 04:27] LABS: Bun/Creatinine Ratio 52.7 (12.0-20.0); Calcium, Blood 8.4 mg/dL (8.5-10.1); Creatinine, Blood 1.88 mg/dL (0.60-1.20); Potassium, Blood 5.1 mmol/L (3.5-5.5)
--- NOTE | 2020-04-15 05:31 | NUR ---
SHIFT SUMMARY: PT APPEARS TO BE RESTING SINCE ADMISSION. ELEVATED CBG AND COVERED PER SS. PT GIVEN GI COCKTAIL PER EMAR. DENIES N/V AT THIS TIME. NS/KCL INFUSING PER ORDERS. HR 110'S THIS MORNING PER TELE. PT VOIDING IN URINAL. AWAITING URINE CULTURE.
--- NOTE | 2020-04-15 12:41 | NUR ---
ATTEMPTED TO CONTACT PATIENT'S ROOMMATE BY PHONE TO REQUEST UPDATED MED LIST EITHER BE BROUGHT IN OR TO DISCUSS OVER THE PHONE. NO ANSWER, LEFT VM.
[2020-04-15] MEDS ORDERED: ALOGLIPTIN PO (15:11)
[2020-04-15] MEDS ORDERED: METO100ER PO (15:11)
[2020-04-15] MEDS ORDERED: AMLO10 PO (15:12)
--- NOTE | 2020-04-15 15:48 | NUR ---
OUTPATIENT MED RECONCILIATION COMPLETE. DR. GEE NOTIFED OF MEDS THAT NEED TO BE ORDERED (METOPROLOL AND AMLODIPINE).
--- NOTE | 2020-04-15 18:29 | NUR ---
SHIFT SUMMARY: LACTIC ACID REMAINS ELEVATED AT 4.1, DR. GEE NOTIFIED. TELEMETRY SHOWED SR-ST 90-120'S. HAS TROUBLE SWALLOWING AT BASELINE, ROOMMATE STATED THAT PATIENT HAD A CT OF THE NECK "A COUPLE OF MONTHS AGO" THAT SHOWED SOME LESIONS IN THE ESOPHAGUS, WHICH WAS SUPPOSED TO BE REPEATED BUT HAS BEEN REPEATEDLY CANCELLED D/T PANDEMIC. [facility] REC[facility] IF DESIRED BY PROVIDER. HYPERTENSIVE 160-170/90-100; STARTED ON HOME ANTIHYPERTENSIVES THIS EVENING. TOLERATING IV ABX. HAD BM TODAY, BUT WAS MIXED WITH URINE, SO UNABLE TO SEND SPECIMEN. SPEECH THERAPY EVAL PENDING.
[2020-04-16 03:40] LABS: BASOPHILS ABSOLUTE AUTO 0.02 K/mm3 (0.00-0.23); BASOPHILS PERCENT AUTO 0 % (0-2); EOSINOPHILS PERCENT AUTO 0 % (0-6); Hematocrit 42.8 % (37.0-53.0); IMMATURE GRAN PERCENT AUTO 1 % (0-1); LYMPHOCYTES ABSOLUTE AUTO 2.79 K/mm3 (0.84-5.20); LYMPHOCYTES PERCENT AUTO 22 % (21-46); MONOCYTES ABSOLUTE AUTO 1.29 K/mm3 (0.16-1.47); MONOCYTES PERCENT AUTO 10 % (4-13); Mean Corpuscular HGB 25.3 pg (26.0-34.0); Mean Corpuscular HGB Conc 30.4 g/dL (31.5-36.5); Mean Corpuscular Volume 83 fL (80-100); Mean Platelet Volume 10.6 fL (9.1-12.4); NEUTROPHILS ABSOLUTE AUTO 8.31 K/mm3 (1.96-9.15); NEUTROPHILS PERCENT AUTO 66 % (41-73); Platelet Count 281 K/mm3 (150-400); RDW Coefficient Variation 15.6 % (11.7-14.2); RDW Standard Deviation 46.7 fL (35.1-46.3); Red Blood Cell Count 5.14 M/mm3 (4.30-5.90); White Blood Cell Count 12.51 K/mm3 (4.00-11.30)
[2020-04-16 03:55] LABS: Magnesium, Blood 2.1 mg/dL (1.6-2.4)
[2020-04-16 03:56] LABS: Albumin, Blood 2.6 g/dL (3.4-5.0); Anion Gap 7 mmol/L (6-16); Blood Urea Nitrogen 47 mg/dL (8-24); Bun/Creatinine Ratio 33.8 (12.0-20.0); CO2, Blood 24 mmol/L (21-32); Calcium, Blood 7.9 mg/dL (8.5-10.1); Chloride, Blood 120 mmol/L (98-108); Creatinine, Blood 1.39 mg/dL (0.60-1.20); Glomerular Filtration Rate 55 (60-); Glucose, Blood 215 mg/dL (70-99); Phosphorus, Blood 3.5 mg/dL (2.5-4.9); Potassium, Blood 3.4 mmol/L (3.5-5.5); Sodium, Blood 151 mmol/L (136-145)
--- NOTE | 2020-04-16 05:11 | NUR ---
SHIFT SUMMARY. PATIENT IS ALERT AND ORIENTED BUT FORGETFUL. LEFT SIDED DEFICIT FROM PREVIOUS CVA AND USES A CANE AT HOME. PATIENT COOPERATIVE WITH CARE. VOMITIED SMALL AMOUNT AFTER DRINKING SOME WATER, APPROX 5OMLS, NO OTHER EPISODES OF VOMITTING THROUGHOUT SHIFT. PATIENT SLEPT MOST THE NIGHT. 02 SATS >97% ON RA. HAD RUN OF A.FIB 110-150s, COULD NOT FIND HX OF A. FIB, CALLED HOSPITALIST, EKG DONE, AND OT DOSE OF LOPRESSOR GIVEN. PATIENT CONVERTED OUT OF A. FIB AND IS NOW SR @90s. CALL LIGHT IN REACH.
[2020-04-16 12:09] LABS: Hematocrit 41.1 % (37.0-53.0); Hemoglobin 12.3 g/dL (13.5-17.5)
--- NOTE | 2020-04-16 19:16 | NUR ---
SHIFT SUMMARY MARIO DENIED PAIN THIS SHIFT. AO1 TO BS. HAD 3 LIQUID BM. FIRST COUPLE WERE RED PER AD OPERATIONS COORDINATOR, THIRD AT SHIFT CHANGE WAS LIQUID BROWN WITH REDDISH TINGE, SENT OFF FOR GUIAC PER DR VILLAGRAN. TOOK MEDS WITH APPLESAUCE, AWAITING RECRUITMENT COORDINATOR. NO SWALLOWING ISSUES NOTED. TELE SHOWED NSR. MIVF RUNNING. MOO CONSULTED, CAME TO BEDSIDE. UNABLE TO GET RECORDS ON A FRIDAY NIGHT, REPORT TO NIGHT RN TO HAVE THEM CALLED FIRST THING IN THE MORNING. PT SAW PT AND RECS HOME WITH HH. CALL LIGHT IN REACH, REPORT GIVEN TO NIGHT NURSE
[2020-04-17 04:16] LABS: BASOPHILS ABSOLUTE AUTO 0.02 K/mm3 (0.00-0.23); BASOPHILS PERCENT AUTO 0 % (0-2); EOSINOPHILS ABSOLUTE AUTO 0.23 K/mm3 (0.00-0.68); EOSINOPHILS PERCENT AUTO 2 % (0-6); Hemoglobin 11.6 g/dL (13.5-17.5); IMMATURE GRAN ABSOLUTE AUTO 0.11 K/mm3 (0.00-0.10); IMMATURE GRAN PERCENT AUTO 1 % (0-1); LYMPHOCYTES ABSOLUTE AUTO 3.25 K/mm3 (0.84-5.20); LYMPHOCYTES PERCENT AUTO 26 % (21-46); MONOCYTES ABSOLUTE AUTO 1.14 K/mm3 (0.16-1.47); MONOCYTES PERCENT AUTO 9 % (4-13); Mean Corpuscular HGB 25.3 pg (26.0-34.0); Mean Corpuscular HGB Conc 30.5 g/dL (31.5-36.5); Mean Corpuscular Volume 83 fL (80-100); Mean Platelet Volume 11.1 fL (9.1-12.4); NEUTROPHILS ABSOLUTE AUTO 7.56 K/mm3 (1.96-9.15); NEUTROPHILS PERCENT AUTO 61 % (41-73); Platelet Count 241 K/mm3 (150-400); RDW Coefficient Variation 15.2 % (11.7-14.2); Red Blood Cell Count 4.59 M/mm3 (4.30-5.90); White Blood Cell Count 12.31 K/mm3 (4.00-11.30)
[2020-04-17 04:29] LABS: Anion Gap 6 mmol/L (6-16); Blood Urea Nitrogen 20 mg/dL (8-24); Bun/Creatinine Ratio 18.3 (12.0-20.0); CO2, Blood 25 mmol/L (21-32); Calcium, Blood 7.9 mg/dL (8.5-10.1); Chloride, Blood 115 mmol/L (98-108); Creatinine, Blood 1.09 mg/dL (0.60-1.20); Glomerular Filtration Rate >60 (60-); Glucose, Blood 149 mg/dL (70-99); Potassium, Blood 2.9 mmol/L (3.5-5.5); Sodium, Blood 146 mmol/L (136-145)
--- NOTE | 2020-04-17 05:09 | NUR ---
DIETARY WORKER SUMMARY PT HAS DENIED ANY PAIN OR NAUSEA THIS SHIFT. VITAL SIGNS HAVE BEEN STABLE AND O2 SATS >92% ON RM AIR. 1/2 NS RUNNING AT 75ML/HR. PT HAS NOT HAD A BOWEL MOVEMENT THIS SHIFT. PT HAS BEEN NSR IN THE 70'S THROUGHOUT THE SHIFT. WILL REPORT TO ONCOMING RNCHARO.
[2020-04-17 09:46] LABS: Stool Occult Bld Immuno 1 Negative (NEGATIVE)
--- NOTE | 2020-04-17 13:35 | NUR ---
HE HAS SHOWERED INDEPENDENTLY AND DRESSED. HE IS WAITING FOR DC INSTRUCTIONS. HE RECEIVED IV KCL AND PO KCL TODAY FOR AM K+LEVEL OF 2.9. HE IS HAPPY TO GO HOME. HE IS AT HIS BASELINE MOBILITY. ST EVALUATED HIM. NO PRECAUTIONS. NO SIGN OF GI BLEED THIS AM. TOLERATED REGULAR ADA DIET AT LUNCH.
[2020-04-17] MEDS ORDERED: POTCHL20ER PO (13:45)
--- NOTE | 2020-04-17 15:42 | NUR ---
DISCHARGED TO HOME AT 1429 WITH BELONGINGS AND INSTRUCTIONS. NO COMPLAINTS.
== END 2020-04-17 14:29 | disposition home health service (06) | DRG 871 ==
LOC: ER 17:37 → MEDS 23:43 → PCU 23:43 → MEDS 04-17 08:25 → ENPENDDIS 04-17 12:21 → MEDS 04-17 14:29
PROVIDERS: Nurse Practitioner Acute Care; Student in an Organized Health Care Education/Training Program; ADMIT Family Medicine
DX: A41.9 Sepsis, unspecified organism (principal); K29.81 Duodenitis with bleeding; N17.9 Acute kidney failure, unspecified; E87.2 Acidosis; I69.354 Hemiplegia and hemiparesis following cerebral infarction affecting left non-dominant side; K52.9 Noninfective gastroenteritis and colitis, unspecified; Z66 Do not resuscitate; Z20.822 Contact with and (suspected) exposure to COVID-19; K21.00 Gastro-esophageal reflux disease with esophagitis, without bleeding; E87.6 Hypokalemia; R65.20 Severe sepsis without septic shock; D47.3 Essential (hemorrhagic) thrombocythemia; K64.9 Unspecified hemorrhoids; I48.91 Unspecified atrial fibrillation; Z79.4 Long term (current) use of insulin; E78.5 Hyperlipidemia, unspecified; E11.9 Type 2 diabetes mellitus without complications; I10 Essential (primary) hypertension; G35 Multiple sclerosis; E86.0 Dehydration; E66.9 Obesity, unspecified
CPT/HCPCS: 36415; 71045; 74177; 80048; 80053; 80069; 81001; 82274; 82803; 82947; 83605; 83690; 83735; 84145; 85014; 85018; 85025; 87040; 87086; 87493; 92610; 93005; 93010; 96361; 96374-59; 96375; 96376; 97116; 97162; 97165; 97535; 99285-25; A9270; C9113; J0295; J0456; J0696; J0780; J1650; J2405; J3480; J7050; J7120; Q9967

== ENCOUNTER 2021-03-20 17:59 | Inpatient (IN) | payer OTHER ==
[~2021-03-20] VITALS: Ht 185.4 cm; Wt 88.4 kg
[~2021-03-20 17:59] MED LIST changes: +ALOGLIPTIN PO; +AMLO10 PO; +ASPIR 8181 M1 PO; +POTCHL20ER PO
[2021-03-20 18:42] LABS: BASOPHILS ABSOLUTE AUTO 0.04 K/mm3 (0.00-0.23); BASOPHILS PERCENT AUTO 0 % (0-2); EOSINOPHILS PERCENT AUTO 0 % (0-6); Hematocrit 46.9 % (37.0-53.0); Hemoglobin 13.3 g/dL (13.5-17.5); IMMATURE GRAN ABSOLUTE AUTO 0.21 K/mm3 (0.00-0.10); IMMATURE GRAN PERCENT AUTO 1 % (0-1); LYMPHOCYTES PERCENT AUTO 5 % (21-46); MONOCYTES ABSOLUTE AUTO 1.53 K/mm3 (0.16-1.47); MONOCYTES PERCENT AUTO 6 % (4-13); Mean Corpuscular HGB 18.4 pg (26.0-34.0); Mean Corpuscular HGB Conc 28.4 g/dL (31.5-36.5); Mean Corpuscular Volume 65 fL (80-100); Mean Platelet Volume 9.7 fL (9.1-12.4); NEUTROPHILS ABSOLUTE AUTO 24.33 K/mm3 (1.96-9.15); NEUTROPHILS PERCENT AUTO 88 % (41-73); Platelet Count 671 K/mm3 (150-400); RDW Coefficient Variation 21.7 % (11.7-14.2); RDW Standard Deviation 45.1 fL (35.1-46.3); Red Blood Cell Count 7.24 M/mm3 (4.30-5.90); White Blood Cell Count 27.61 K/mm3 (4.00-11.30)
[2021-03-20 19:01] LABS: Alanine Aminotransfer (ALT/SGP 18 U/L (12-78); Albumin, Blood 3.9 g/dL (3.4-5.0); Albumin/Globulin Ratio 0.9 (0.8-1.8); Alk Phos 85 U/L (50-136); Anion Gap 12 mmol/L (6-16); Aspartate Aminotrans (AST/SGOT 8 U/L (12-37); Bilirubin, Total 0.6 mg/dL (0.1-1.0); Blood Urea Nitrogen 36 mg/dL (8-24); CO2, Blood 17 mmol/L (21-32); Calcium, Blood 8.8 mg/dL (8.5-10.1); Chloride, Blood 107 mmol/L (98-108); Creatinine, Blood 1.16 mg/dL (0.60-1.20); Globulin, Blood 4.5 g/dL (2.2-4.0); Glomerular Filtration Rate >60 (60-); Glucose, Blood 261 mg/dL (70-99); Sodium, Blood 136 mmol/L (136-145); Total Protein, Blood 8.4 g/dL (6.4-8.2)
[2021-03-20 20:07] LABS: Source, Urine Clean Catch
[2021-03-20 20:10] LABS: Bilirubin, Urine Neg (Neg); Blood, Urine Neg (Neg); Glucose Qualitative, Urine 4+ (Neg); Ketones, Urine 3+ (Neg); Leukocyte Esterase, Urine Neg (Neg); Nitrite, Urine Neg (Neg); Protein, Urine 2+ (Neg); Specific Gravity, Urine 1.015 (1.003-1.022); Urobilinogen, Urine NORM (Normal)
[2021-03-20 20:11] LABS: Appearance, Urine Clear (Clear); Color, Urine Yellow (P-Yellow)
[2021-03-20 20:18] LABS: Bacteria Not Seen /hpf; Squamous Epithelial Cells Rare /hpf (Few); White Blood Cells, Urine Not Seen /hpf (0-5)
[2021-03-20 20:19] LABS: Red Blood Cells, Urine Not Seen /hpf (0-2)
[2021-03-20 20:58] LABS: Influenza A, PCR NEGATIVE (NEGATIVE); Influenza B, PCR NEGATIVE (NEGATIVE); Resp Syncytial Virus, PCR NEGATIVE (NEGATIVE); SARS-Cov-2 (COVID-19) PCR, MMC NEGATIVE (NEGATIVE)
[2021-03-21 05:31] LABS: BASOPHILS ABSOLUTE AUTO 0.03 K/mm3 (0.00-0.23); BASOPHILS PERCENT AUTO 0 % (0-2); EOSINOPHILS PERCENT AUTO 0 % (0-6); Hematocrit 41.8 % (37.0-53.0); Hemoglobin 11.6 g/dL (13.5-17.5); IMMATURE GRAN ABSOLUTE AUTO 0.19 K/mm3 (0.00-0.10); IMMATURE GRAN PERCENT AUTO 1 % (0-1); LYMPHOCYTES ABSOLUTE AUTO 1.82 K/mm3 (0.84-5.20); LYMPHOCYTES PERCENT AUTO 7 % (21-46); MONOCYTES ABSOLUTE AUTO 1.82 K/mm3 (0.16-1.47); MONOCYTES PERCENT AUTO 7 % (4-13); Mean Corpuscular HGB 18.2 pg (26.0-34.0); Mean Corpuscular HGB Conc 27.8 g/dL (31.5-36.5); Mean Corpuscular Volume 66 fL (80-100); Mean Platelet Volume 9.8 fL (9.1-12.4); NEUTROPHILS ABSOLUTE AUTO 20.72 K/mm3 (1.96-9.15); NEUTROPHILS PERCENT AUTO 84 % (41-73); Platelet Count 532 K/mm3 (150-400); RDW Coefficient Variation 21.2 % (11.7-14.2); RDW Standard Deviation 45.2 fL (35.1-46.3); Red Blood Cell Count 6.38 M/mm3 (4.30-5.90); White Blood Cell Count 24.58 K/mm3 (4.00-11.30)
[2021-03-21 05:56] LABS: Anion Gap 13 mmol/L (6-16); Blood Urea Nitrogen 34 mg/dL (8-24); Bun/Creatinine Ratio 34.3 (12.0-20.0); CO2, Blood 18 mmol/L (21-32); Calcium, Blood 8.1 mg/dL (8.5-10.1); Chloride, Blood 111 mmol/L (98-108); Creatinine, Blood 0.99 mg/dL (0.60-1.20); Glomerular Filtration Rate >60 (60-); Glucose, Blood 178 mg/dL (70-99); Potassium, Blood 3.9 mmol/L (3.5-5.5); Sodium, Blood 142 mmol/L (136-145)
--- NOTE | 2021-03-21 18:04 | NUR ---
SHIFT SUMMARY PT HAS BEEN RESTING QUIETLY IN BED SINCE ADMISSION. PT HAS VOICED NO C/O PAIN/DISCOMFORT. NO ACUTE CHANGES/EVENTS SINCE ASSUMPTION OF CARE.
--- NOTE | 2021-03-22 06:37 | NUR ---
SHIFT SUMMARY PATIENT FOUND TO BE A PLESANT MAN WHO IS A&OX4 WITH LEFT SIDED WEAKNESS AT BASELINE FROM PREVIOUS CVA AT BASELINE. CAN MOVE LEFT LEG BUT LEFT ARM IS FLACCID. BRACE AT BEDSIDE FOR WALKING ASSISTANCE. BEDREST AT THIS TIME AND HAS SOME GENERALIZED WEAKNESS. UP WITH ONE ASSIST OTHERWISE. NO PAIN OR DISTRESS NOTED UPON ASSESSMENT. VSS. ON RA. SINUS TACHY 90'S-LOW 100'S ON THE MONITOR. TOLERATING CLD WITHOUT ISSUE. VOIDING WELL PER URINAL. IV FLUIDS AND ABX RUNNING PER ORDER. NO ACUTE CONCERNS AT THIS TIME. WILL CONTINUE PLAN OF CARE UNTIL REPORT GIVEN TO MICHAEL RN.
[2021-03-22 08:21] LABS: Hematocrit 31.6 % (37.0-53.0); Hemoglobin 8.9 g/dL (13.5-17.5); Mean Corpuscular HGB 18.5 pg (26.0-34.0); Mean Corpuscular HGB Conc 28.2 g/dL (31.5-36.5); Mean Corpuscular Volume 66 fL (80-100); Mean Platelet Volume 10.1 fL (9.1-12.4); Platelet Count 402 K/mm3 (150-400); RDW Coefficient Variation 20.3 % (11.7-14.2); RDW Standard Deviation 46.1 fL (35.1-46.3); Red Blood Cell Count 4.81 M/mm3 (4.30-5.90); White Blood Cell Count 14.81 K/mm3 (4.00-11.30)
[2021-03-22 08:42] LABS: Anion Gap 5 mmol/L (6-16); Blood Urea Nitrogen 27 mg/dL (8-24); Bun/Creatinine Ratio 29.4 (12.0-20.0); CO2, Blood 24 mmol/L (21-32); Calcium, Blood 7.9 mg/dL (8.5-10.1); Chloride, Blood 113 mmol/L (98-108); Creatinine, Blood 0.92 mg/dL (0.60-1.20); Glomerular Filtration Rate >60 (60-); Glucose, Blood 176 mg/dL (70-99); Potassium, Blood 3.4 mmol/L (3.5-5.5); Sodium, Blood 142 mmol/L (136-145)
[2021-03-22 14:48] LABS: Hematocrit 29.5 % (37.0-53.0); Hemoglobin 8.2 g/dL (13.5-17.5)
[2021-03-22 15:23] LABS: Magnesium, Blood 1.7 mg/dL (1.6-2.4); Percent Saturation 8.3 % (20.0-50.0); Potassium, Blood 3.6 mmol/L (3.5-5.5)
--- NOTE | 2021-03-22 18:07 | NUR ---
SHIFT SUMMARY PT HAS SLEPT MOST OF THE DAY, PT STATED "MAY WELL CATCH UP ON SOME SLEEP WHILE I'M HERE." PT WAS EASILY ROUSED BY VOICE. PT HAS DENIED C/O PAIN OR DISCOMFORT. PT FREQUENTLY REPOSITIONED SELF IN BED. PT HAS BEEN ALERT AND FULLY ORIENTED AND COOPERATIVE WITH CARES. PT HAD DIFFICULTY WITH LARGER PO MEDS AND REFUSED PO MEDS THAT THEY DEEMED TOO LARGE. BP HAS STEADILY DECREASED FROM 120 SBP TO 94 SBP, PO METOPROLOL TARTRATE WAS GIVEN AT 1147. ALL OTHER VITAL SINGS STABLE.
[2021-03-23 04:15] LABS: BASOPHILS ABSOLUTE AUTO 0.06 K/mm3 (0.00-0.23); BASOPHILS PERCENT AUTO 1 % (0-2); EOSINOPHILS ABSOLUTE AUTO 0.13 K/mm3 (0.00-0.68); EOSINOPHILS PERCENT AUTO 1 % (0-6); Hematocrit 28.5 % (37.0-53.0); Hemoglobin 8.1 g/dL (13.5-17.5); IMMATURE GRAN ABSOLUTE AUTO 0.03 K/mm3 (0.00-0.10); IMMATURE GRAN PERCENT AUTO 0 % (0-1); LYMPHOCYTES ABSOLUTE AUTO 3.34 K/mm3 (0.84-5.20); LYMPHOCYTES PERCENT AUTO 31 % (21-46); MONOCYTES ABSOLUTE AUTO 1.04 K/mm3 (0.16-1.47); MONOCYTES PERCENT AUTO 10 % (4-13); Mean Corpuscular HGB 18.6 pg (26.0-34.0); Mean Corpuscular HGB Conc 28.4 g/dL (31.5-36.5); Mean Corpuscular Volume 66 fL (80-100); NEUTROPHILS PERCENT AUTO 58 % (41-73); Platelet Count 323 K/mm3 (150-400); RDW Coefficient Variation 20.6 % (11.7-14.2); RDW Standard Deviation 46.3 fL (35.1-46.3); Red Blood Cell Count 4.35 M/mm3 (4.30-5.90)
[2021-03-23 04:41] LABS: Anion Gap 9 mmol/L (6-16); Blood Urea Nitrogen 16 mg/dL (8-24); Bun/Creatinine Ratio 19.6 (12.0-20.0); CO2, Blood 23 mmol/L (21-32); Calcium, Blood 7.8 mg/dL (8.5-10.1); Chloride, Blood 111 mmol/L (98-108); Creatinine, Blood 0.82 mg/dL (0.60-1.20); Glomerular Filtration Rate >60 (60-); Glucose, Blood 141 mg/dL (70-99); Potassium, Blood 3.2 mmol/L (3.5-5.5); Sodium, Blood 143 mmol/L (136-145)
--- NOTE | 2021-03-23 06:16 | NUR ---
SHIFT SUMMARY ASSUMED CARE OF PT AT 1900. PT IS A/OX4. HEART SOUNDS REGULAR, LING SOUNDS CLEAR. PT WAS A 1P ASSIT TO BATHROOM WITH WALKER. PT USED THE URINAL T/O THE NIGHT. PT HAS L SIDED DEFICITS. PT HAD NO NEW COMPLAINTS. CALL LIGHT IN REACH, BED IN LOWEST POSTION.
[2021-03-23] MEDS ORDERED: VISBIOME 112.51 EACH PO (10:47)
[2021-03-23] MEDS ORDERED: AMOX CLAV PO (10:49)
[2021-03-23] MEDS ORDERED: PANT20 PO (10:50)
[2021-03-23] MEDS ORDERED: POTA20LUD PO (10:51)
[2021-03-23] MEDS ORDERED: BACL10 PO (11:01)
--- NOTE | 2021-03-23 12:04 | NUR ---
DISCHARGE SUMMARY- PT TO D/C HOME. DISCHARGE MEDS TO BE PICKED UP FROM IN, MED REC FAXED TO IN PER FELIPA RN. DISCHARGE INSTRUCTION COMPLETED, PT VERBALIZED UNDERSTANDING. ALL BELONGINGS SENT HOME WITH PT. PT IN NO APPARENT DISTRESS AT THIS TIME.
== END 2021-03-23 12:30 | disposition home or self-care (01) | DRG 871 ==
LOC: ER 17:59 → ERHOLD 23:01 → PCU 03-21 12:54
PROVIDERS: Internal Medicine; Physician Assistant; Student in an Organized Health Care Education/Training Program; ADMIT Family Medicine
DX: A41.9 Sepsis, unspecified organism (principal); R65.21 Severe sepsis with septic shock; I69.354 Hemiplegia and hemiparesis following cerebral infarction affecting left non-dominant side; E87.2 Acidosis; I47.2 Ventricular tachycardia; Z20.822 Contact with and (suspected) exposure to COVID-19; Z66 Do not resuscitate; K21.9 Gastro-esophageal reflux disease without esophagitis; D75.839 Thrombocytosis, unspecified; E11.9 Type 2 diabetes mellitus without complications; E86.0 Dehydration; K52.9 Noninfective gastroenteritis and colitis, unspecified; D50.9 Iron deficiency anemia, unspecified; I10 Essential (primary) hypertension; E87.6 Hypokalemia; G35 Multiple sclerosis; E78.00 Pure hypercholesterolemia, unspecified; Z53.20 Procedure and treatment not carried out because of patient's decision for unspecified reasons; Z98.41 Cataract extraction status, right eye; Z98.42 Cataract extraction status, left eye; Z98.890 Other specified postprocedural states; Z79.4 Long term (current) use of insulin; Z79.82 Long term (current) use of aspirin; Z79.899 Other long term (current) drug therapy
CPT/HCPCS: 0241U; 36415; 71045; 74177; 80048; 80053; 81001; 82728; 82947; 83540; 83550; 83605; 83735; 84132; 85014; 85018; 85025; 85027; 87040; 93005; 93010; 96365; 96367; 96372; 96375; 96376; 99285-25; A9270; C9113; J0696; J1650; J1815; J2405; J7030; J7120; Q9967